=== PATIENT | female | born 1985 | race Caucasian/White ===

== ENCOUNTER 2025-01-05 04:22 | Emergency (ER) | payer OTHER, SELFPAY ==
[2025-01-05 04:25] VITALS: BP 102/68
[2025-01-05 05:09] LABS: Hematocrit 40.6 % (37.0-47.0); Hemoglobin 13.4 g/dL (12.0-16.0); Mean Corpuscular Hgb 28.6 pg (27.0-31.0); Mean Corpuscular Volume 86.8 fL (81.0-99.0); Mean Platelet Volume 9.7 fL (7.4-10.4); Platelet Count 180 10^3/uL (130-400); Red Blood Cell Count 4.68 10^6/uL (4.20-5.40); Red Cell Dist. Width 13.9 % (11.5-14.5); White Blood Cell Count 3.7 10^3/uL (4.8-10.8)
[2025-01-05 05:14] LABS: Urine Albumin Negative (Neg - Trace); Urine Bilirubin Negative (Negative); Urine Character Clear (Clear); Urine Color Yellow; Urine Glucose Negative (Negative); Urine Ketone Negative (Negative); Urine Leukocyte 1+ (Negative); Urine Nitrite Negative (Negative); Urine Occult Blood Negative (Negative); Urine Urobilinogen Negative (Neg - 1+)
[2025-01-05 05:17] LABS: HCG, Serum Qualitative Screen Negative
[2025-01-05 05:18] LABS: ALT (SGPT) 20 U/L (0-35); AST (SGOT) 24 U/L (14-36); Albumin 4.6 g/dl (3.5-5.0); Alkaline Phosphatase 82 U/L (38-126); Blood Urea Nitrogen 11 mg/dl (7-17); Calcium 9.6 mg/dl (8.4-10.2); Carbon Dioxide 29 mmol/L (22-30); Chloride 102 mmol/L (98-107); Glucose 92 mg/dl (70-99); Potassium 4.1 mmol/L (3.5-5.1); Sodium 138 mmol/L (135-145); Total Bilirubin 0.8 mg/dl (0.2-1.3); Total Protein 6.9 g/dl (6.3-8.2); eGFR > 60.00
[2025-01-05 05:24] LABS: Urine Squamous Cell >30 /LPF (Few); Urine Urothelial Cell 21-25 /LPF (FEW)
[2025-01-05 05:25] LABS: Urine Bacteria Few (Negative); Urine Calcium Oxalate Crystals Seen; Urine Red Blood Cell 0-2 /HPF (0-2)
[2025-01-05 06:00] VITALS: BMI 19.2
[2025-01-05 06:30] VITALS: BP 106/69
--- NOTE | 2025-01-05 06:47 | ED.GENMED ---
History of Present Illness
General
Chief Complaint: Abdominal Pain
Time Seen by Provider: 01/05/25 06:47
History of Present Illness
History of Present Illness:
TIME OF INITIAL ENCOUNTER: 6:50 AM
HPI: Approximately 7 hours ago, the patient developed diffuse lower cramping in the abdomen that progressed primarily to the left lower quadrant. The pain worsened with position changes. It does not radiate significantly into the left lower
extremity. Spontaneously, the pain has lessened currently. However there is still some ongoing discomfort. There is no associated vomiting or diarrhea. The patient states that she does not feel well-hydrated.
EXAM:
GENERAL: Well appearing in no distress
HEENT: Moist oral mucosa
CARDIOVASCULAR: No murmurs, normal heart rate, regular rhythm, No chest wall tenderness
PULMONARY: No respiratory distress, breath sounds are clear and equal
ABDOMEN: Soft with no peritoneal signs, mild left lower quadrant tenderness, no CVA tenderness
NEUROLOGIC: Excellent strength all extremities, no coordination deficits
PSYCHIATRIC: Appropriate mental status, normal insight and judgement
EXTREMITIES: Nontender, no edema, moves all extremities equally
SKIN: No rash, no lesions
NUMBER AND COMPLEXITY OF PROBLEMS ADDRESSED AT THE ENCOUNTER
� Chronic conditions affecting care: No significant past medical history
� Acute Exacerbation and/or Progression of Chronic Illness: This is an acute
� Differential Diagnosis includes: Oblique muscle strain, diverticulitis, UTI unlikely based on urinalysis
AMOUNT AND/OR COMPLEXITY OF DATA TO BE REVIEWED AND ANALYZED
� I performed an independent evaluation of and my interpretation is:
EKG:
CT: CT shows increase stool burden
X-rays:
Laboratory Studies: White count 3.7, hemoglobin normal, hCG negative, urinalysis appears contaminated, no clear evidence of infection
Other:
� Review of other/old records: No old records available for review in [facility]
� Clinical information was obtained by an independent historian: I spoke to mother at bedside
� Prescriptions/Medications Considered but not given: Considered analgesia such as Toradol however the patient declines
� Further testing considered but not performed:
RISK OF COMPLICATIONS AND/OR MORBIDITY OR MORTALITY OF PATIENT MANAGEMENT
� Social determinants of health affecting care: Lives at home
� Discussion with other providers:
� Escalation of care including admission/observation vs risk of discharge considered: The patient does have mild left lower quadrant tenderness which was described as rather severe earlier, will obtain CT imaging with oral and IV
contrast given her thin body habitus. She does not feel well-hydrated�will give a liter of IV fluids.
ANY OTHER UPDATES:
CT imaging with oral and IV contrast was obtained.
11:05 AM: I reassessed patient�appears comfortable. We talked about the possibility of constipation. Recommended MiraLAX.
Phy Exam
Physical Exam
Physical Exam:
See HPI
Course
Orders/Labs/Results
Orders:
Orders
01/05/25 04:31
Test Result ONCE
01/05/25 04:41
Complete Blood Count/With Diff Urgent
Comprehensive Metabolic Panel Urgent
HCG, Serum Qualitative Screen Urgent
Manual Differential Urgent
Urinalysis Reflex To Culture Urgent
Date Specimen was Collected: 01/05/25
Time Specimen was Collected: 04:31
Urine Microscopic Reflex Cult Urgent
Urine Culture Urgent
DEA Source: U
Specimen Description:
Date Specimen was Collected: 01/05/25
Time Specimen was Collected: 04:31
01/05/25 06:55
CT Abd/pel W Iv And Oral Contr Urgent
Comment:
Reason For Exam: LLQ pain
0.9% Sodium Chloride 1000 ml [Nss] 1,000 ml IV BOLUS
Iohexol [Omnipaque] See Protocol PO NOW STA
Abnormal Lab Results
01/05/25
04:41
WBC 3.7 L 10^3/uL
(4.8-10.8)
Segmented Neutrophils 30 L %
(42-75)
Band Neutrophils 9 H %
(0-3)
Leukocyte Esterase Rfl 1+ A
(Negative)
Urine Bacteria (Reflex) Few A
(Negative)
01/05/25 04:41
01/05/25 04:41
Vital Signs
Initial and Last Documented VS:
Initial Vital Signs
Temp Pulse Resp BP Pulse Ox
36.6 C 87 14 102/68 100
01/05/25 04:25 01/05/25 04:25 01/05/25 04:25 01/05/25 04:25 01/05/25 04:25
Last Documented Vital Signs
Temp Pulse Resp BP Pulse Ox
36.7 C 74 14 115/69 100
01/05/25 06:30 01/05/25 10:20 01/05/25 10:20 01/05/25 10:20 01/05/25 10:20
*Critical Care Note
Total Time (30-74mins, 75-104mins- exclusive of procedures): Not Applicable
ED Attending Note
-
Portions of this chart may have been created with voice recognition software.� Occasional wrong word or��sound alike� substitutions may have occurred due to the inherent limitations of voice recognition software.
Discharge Plan
Departure
Prescriptions:
No Action
dextroamphetamine-amphetamine [Adderall XR] 30 mg Capsule,Extended Release 24hr
30 mg PO DAILY
multivitamin Tablet,Chewable
1 tab PO QPM
Referrals:
UNKNOWN - PT DOES,NOT KNOW [Family Provider] -
Interventions
Interventions:
*Risk Screen - Suicide Last Done: 01/05/25 04:25
*General Assessment Last Done: 01/05/25 06:00
*Neglect/Abuse Screening Last Done: 01/05/25 06:00
ED- Fall Risk Assessment Last Done: 01/05/25 06:00
*ED COVID-19 Vaccine History Last Done: 01/05/25 06:00
RX-Uhbocz-Ecxghoooha Assessment Last Done: 01/05/25 08:33
Discharge Date and Time
Print Language: [place]
[2025-01-05] MEDS: OMNIPAQUE 50 ML PO (07:20)
[2025-01-05 07:25] LABS: Segmented Neutrophils 30 % (42-75)
[2025-01-05 07:26] LABS: Absolute Neutrophils -Man Diff 1.4 10^3/uL (1.4-6.5); Atypical Lymphocytes 14 %; Band Neutrophils 9 % (0-3); Eosinophils 2 % (0-6); Lymphocytes 40 % (20-51); Monocytes 5 % (2-9); Normal RBC Morphology Yes; Platelets Checked Yes; Total Cells Counted 100
[2025-01-05] MEDS: NSS 1000 IV (07:26)
[2025-01-05 07:30] VITALS: BP 111/62
[2025-01-05 08:00] VITALS: BP 118/75
[2025-01-05 10:20] VITALS: BP 115/69
[2025-01-05 11:24] VITALS: BP 116/58
== END 2025-01-05 11:27 | disposition home or self-care (01) ==
LOC: EMR 04:22
PROVIDERS: Student in an Organized Health Care Education/Training Program; EMERGENCY PHYSICIAN Emergency Medicine
DX: R10.30 Lower abdominal pain, unspecified (principal)
CPT/HCPCS: 99284; 74177; 80053; 81003; 81015; 84703; 85025; 87086; Q9967